=== PATIENT | female | born 1950 | race Caucasian/White ===

== ENCOUNTER → 2018-08-19 11:47 | Outpatient (CLI) | payer OTHER, SELFPAY ==
--- NOTE | 2018-08-19 | DI.MG.S_ITS ---
BILATERAL DIGITAL SCREENING MAMMOGRAM 3D/2D WITH CAD: 08/19/2018 CLINICAL: Routine screening. Family history of breast cancer. Comparison is made to exams dated: 05/15/2012 mammogram - [facility] and 02/08/2006 mammogram - [facility]. There are scattered fibroglandular elements in both breasts. Current study was also evaluated with a Computer Aided Detection (CAD) system. There is architectural distortion in the left breast at 11 o'clock middle depth. There also is a focal asymmetry in the left breast central to the nipple anterior depth. There is architectural distortion associated with the focal asymmetry. No other significant masses, calcifications, or other findings are seen in either breast. IMPRESSION: INCOMPLETE: NEEDS ADDITIONAL IMAGING EVALUATION The architectural distortion in the left breast at 11 o'clock middle depth is indeterminate. Additional views with possible ultrasound are recommended. The focal asymmetry in the left breast central to the nipple anterior depth is indeterminate. Additional views with possible ultrasound are recommended. This exam was interpreted at Station ID: [id number]. NOTE: For mammograms, a report in lay terms will be sent to the patient. Approximately 15% of breast malignancies will not be visualized mammographically. In the management of a palpable breast mass, a negative mammogram must not discourage biopsy of a clinically suspicious lesion. Electronically Signed By: Emily [email or web address]/[email or web address]:08/21/2018 09:14:25 letter sent: Additional Imaging Needed ACR BI-RADS Category 0: Incomplete 3340F
== END ==
PROVIDERS: Visit Provider Nurse Practitioner Family
DX: Z12.31 Encounter for screening mammogram for malignant neoplasm of breast (principal); Z80.3 Family history of malignant neoplasm of breast
CPT/HCPCS: 77063; 77067

== ENCOUNTER → 2018-09-15 10:04 | Outpatient (CLI) | payer OTHER, SELFPAY ==
--- NOTE | 2018-09-15 | DI.MG.S_ITS ---
UNILATERAL LEFT DIGITAL DIAGNOSTIC MAMMOGRAM 3D/2D WITH ADDITIONAL VIEWS: 09/15/2018 CLINICAL: Additional evaluation requested from prior study. Comparison is made to exams dated: 08/19/2018 mammogram - [facility], 05/15/2012 mammogram - [facility], and 02/08/2006 mammogram - [facility]. The tissue of left breast is predominantly fatty. There is a focal asymmetry in the left breast at 1 o'clock anterior depth. This is seen in additional views. There is architectural distortion associated with the focal asymmetry. There also is a focal asymmetry in the left breast at 9 o'clock posterior depth. This is less prominent on additional views. There is architectural distortion associated with the focal asymmetry. No other significant masses or calcifications are seen in the breast. IMPRESSION: INCOMPLETE: NEEDS ADDITIONAL IMAGING EVALUATION The focal asymmetry in the left breast at 1 o'clock anterior depth is indeterminate. An ultrasound is recommended. The focal asymmetry in the left breast at 9 o'clock posterior depth is indeterminate. A targeted ultrasound of the left breast is recommended and will be performed immediately following this exam. This exam was interpreted at Station ID: [id number]. NOTE: For mammograms, a report in lay terms will be sent to the patient. Approximately 15% of breast malignancies will not be visualized mammographically. In the management of a palpable breast mass, a negative mammogram must not discourage biopsy of a clinically suspicious lesion. Electronically Signed By: Emily Ayala M.D. lk/:09/15/2018 10:44:30 letter sent: Additional Imaging Needed ACR BI-RADS Category 0: Incomplete 3340F
--- NOTE | 2018-09-15 | DI.US.S_ITS ---
ULTRASOUND OF LEFT BREAST: 09/15/2018 CLINICAL: Patient returns for additional imaging over a suspected mass in the left breast. Comparison is made to exams dated: 09/15/2018 mammogram, 08/19/2018 mammogram - [facility], and 05/15/2012 mammogram - [facility]. Real-time ultrasound of the left breast was performed on the areas of interest. [place] scale images of the real-time examination were reviewed. There are no ultrasound findings to correlate with the two foci of architectual distortion seen on the mammogram. There is an incedentally noted cyst in the left breast at 1 o'clock middle depth. IMPRESSION: INCOMPLETE: NEEDS ADDITIONAL IMAGING EVALUATION There is no sonographic abnormality seen in the left breast to correspond with the architectural distortion at 1 o'clock and 10 o'clock. Breast MRI is recommended to further characterize findings. The cyst in the left breast is benign. This exam was interpreted at Station ID: [id number]. Electronically Signed By: Emily goncalves/:09/18/2018 13:00:44 Entry: - 09/18/2018 13:00:44 letter sent: Need MRI Ultrasound BI-RADS: 0 Indeterminate
== END ==
PROVIDERS: Visit Provider Nurse Practitioner Family
DX: R92.8 Other abnormal and inconclusive findings on diagnostic imaging of breast (principal)
CPT/HCPCS: 76642; 77065; G0279